=== PATIENT | male | born 1995 | race Caucasian/White ===

== ENCOUNTER 2018-09-14 10:30 | Emergency (ER) | payer MEDICAID, OTHER ==
[~2018-09-14] VITALS: Ht 177.8 cm; Wt 63.5 kg
[2018-09-14 10:35] VITALS: Ht 177.8 cm; Wt 63.5 kg
--- NOTE | 2018-09-14 11:21 | PSY ---
Date/Time of Note Date/Time of Note DATE: 09/14/18 TIME: 14:18 Psychiatric Subjective Eval Consent Pt consented to telemedicine: Yes Subjective Evaluation Patient location: emergency Chief Complaint: SUICIDAL IDEATION WITH PLAN, DX BIPOLAR, DEPRESSION History of present illness 22 yo male who says "I am very very suicidal right now." Clearly tells he wants to kill himself. Says he has dx of anxiety and bipolar disorder. Denies psychosis or nickolas. Reports thc use. Reports depressive sxs. Past Psych Hx: + ho admits no ho suicide attempts PMHx: denies nkda MSE: casually groomed, cooperative, depressed, organized, no delusions or avh +SI Imp: 22 yo male with si vol psych admit utox for moderate agitation zyprexa 5mg po prn for severe agitation chlorpromazine 25mg im prn Assessment and Plan Recommendation/Plan Multiple antipsychotics: No Discharge Disposition: Psychiatric inpatient Legal Status: Voluntary MAXIMO MURRELL Sep 14, 2018 11:21
[2018-09-14] MEDS ORDERED: GABA100C14 PO (12:44)
[2018-09-14] MEDS ORDERED: VENL37.56 PO (12:45)
--- NOTE | 2018-09-14 13:01 | ERD ---
ER Documentation Chief Complaint Chief Complaint SUICIDAL IDEATION WITH PLAN, DX BIPOLAR, DEPRESSION HPI Patient is a 22-year-old male with bipolar disorder who presents with suicidal ideation. He said that it started on September 06 because he has financial problems. He was kicked out of his apartment. He has no family here in the area. He had a plan to stab himself in the neck. He does not currently have a primary doctor. Upon review of old medical records this is the patient's first visit to the emergency department. ROS All systems reviewed and are negative except as per history of present illness. Medications Home Meds Reported Medications Venlafaxine Hcl* (Effexor*) Unknown Strength Tablet, 1 TAB PO DAILY, TAB 09/14/18 Gabapentin* (Gabapentin*) Unknown Strength Capsule, 1 TAB PO DAILY, #90 CAP 09/14/18 Allergies Allergies: Coded Allergies: No Known Allergy (Unverified , 09/14/18) PMhx/Soc Hx Psychiatric Problems: Yes (BIPOLAR) Hx Alcohol Use: No Hx Substance Use: Yes (MARIJUANA) Hx Tobacco Use: No Smoking Status: Never smoker FmHx Family History: No diabetes Physical Exam Vitals Vital Signs Date Temp Pulse Resp B/P (MAP) Pulse Ox O2 O2 Flow FiO2 Time Delivery Rate 09/14/18 98.1 67 18 144/74 99 10:35 (97) Physical Exam Const: No acute distress Head: Atraumatic Eyes: Normal Conjunctiva ENT: Normal External Ears, Nose and Mouth. Neck: Full range of motion. No meningismus. Resp: Clear to auscultation bilaterally Cardio: Regular rate and rhythm, no murmurs Abd: Soft, non tender, non distended. Normal bowel sounds Skin: No petechiae or rashes Back: No midline or flank tenderness Ext: No cyanosis, or edema Neur: Awake and alert Psych: Depressed affect with positive suicidal ideation with plan Result Diagram: 09/14/18 1219 09/14/18 1219 Results 24 hrs Laboratory Tests Test 09/14/18 12:19 White Blood Count 10.9 10^3/ul Red Blood Count 4.63 10^6/ul Hemoglobin 13.9 g/dl Hematocrit 40.4 % Mean Corpuscular Volume 87.3 fl Mean Corpuscular Hemoglobin 30.0 pg Mean Corpuscular Hemoglobin Concent 34.4 g/dl Red Cell Distribution Width 13.0 % Platelet Count 260 10^3/UL Mean Platelet Volume 9.5 fl Immature Granulocytes % 0.400 % Neutrophils % 81.3 % Lymphocytes % 13.1 % Monocytes % 4.2 % Eosinophils % 0.6 % Basophils % 0.4 % Nucleated Red Blood Cells % 0.0 /100WBC Immature Granulocytes # 0.040 10^3/ul Neutrophils # 8.8 10^3/ul Lymphocytes # 1.4 10^3/ul Monocytes # 0.5 10^3/ul Eosinophils # 0.1 10^3/ul Basophils # 0.0 10^3/ul Nucleated Red Blood Cells # 0.0 10^3/ul Sodium Level 142 mmol/L Potassium Level 4.8 mmol/L Chloride Level 104 mmol/L Carbon Dioxide Level 30 mmol/L Anion Gap 8 Blood Urea Nitrogen 14 mg/dl Creatinine 0.71 mg/dl Est Glomerular Filtrat Rate mL/min > 60 mL/min Glucose Level 140 mg/dl Calcium Level 9.4 mg/dl Total Bilirubin 0.6 mg/dl Direct Bilirubin 0.00 mg/dl Indirect Bilirubin 0.6 mg/dl Aspartate Amino Transf (AST/SGOT) 26 IU/L Alanine Aminotransferase (ALT/SGPT) 28 IU/L Alkaline Phosphatase 51 IU/L Total Protein 7.9 g/dl Albumin 4.5 g/dl Globulin 3.40 g/dl Albumin/Globulin Ratio 1.32 Salicylates Level < 1.0 mg/dl Acetaminophen Level < 10.0 ug/ml Ethyl Alcohol Level < 10.0 mg/dl Procedures/MDM Patient is a 22-year-old male with bipolar disorder who presents with suicidal ideation. The patient was medically cleared with laboratory studies and urine sample. The patient was seen by psychiatry who recommended voluntary psychiatric admission. The patient is agreeable. Departure Diagnosis: Primary Impression: Suicidal ideation Condition: RODO Vazquez MD Sep 14, 2018 13:01
--- NOTE | 2018-09-15 02:15 | EN ---
Date/Time of Note Date/Time of Note DATE: 09/15/18 TIME: 02:15 ER Progress Note Observation Note: Time: 4 hours Family Hx: No Hypertension Evaluation: Multiple exams showed improving symptoms and no evidence of increasing psychiatric instability SILVIO NICOLAS Sep 15, 2018 02:15
--- NOTE | 2018-09-15 09:47 | PSY ---
Date/Time of Note Date/Time of Note DATE: 09/15/18 TIME: 09:43 Psychiatric Subjective Eval Consent Pt consented to telemedicine: Yes Subjective Evaluation Patient location: emergency Chief Complaint: SUICIDAL IDEATION WITH PLAN, DX BIPOLAR, DEPRESSION Reason for consult: SI History of present illness 22 yo homeless male with hx bipolar d/o who was evaluated by telepsychiatry yesterday. Pt continues to cortney suicidal statements with plans to stab himself in the neck or walk into traffic. He says he is very depressed and hopeless because his father told him to go ahead and kill himself. Pt denies AH or Vh, denies HI. pT SAYS HE IS ON EFFEXOR XR 150 MG POQD GABAPENTIN 600 MG PO TID , OFF FOR A WEEK. Past psychiatric history multiple inpt Hospitalization: no Medical history Problems Medical Problems: (1) Suicidal ideation Status: Acute Allergies: Coded Allergies: No Known Allergy (Unverified , 09/14/18) Substance Abuse Substance use: No known substance abuse Social History Marital status: single DPA/Conservatorship: No Occupation/Detention: unemployed Psychiatric Objective Eval Review of Systems: Review of Systems: Not Applicable Mental Status Examination: Appearance: Disheveled Eye Contact: Good Psychomotor Activity: Normal Behavior: Cooperative Speech: Clear AFFECT: Depressed, Anxious Mood: Appropriate/Full, Anxious Though Process: Linear Thought Content: Normal Suicidal: Yes Homicidal: No On 72 hour hold: Yes Orientation: x4 Cognition: Alert Insight: Impared Judgement: Impared Laboratory Results Laboratory Tests Test 09/14/18 12:19 09/14/18 13:04 White Blood Count 10.9 10^3/ul Red Blood Count 4.63 10^6/ul Hemoglobin 13.9 g/dl Hematocrit 40.4 % Mean Corpuscular Volume 87.3 fl Mean Corpuscular Hemoglobin 30.0 pg Mean Corpuscular Hemoglobin Concent 34.4 g/dl Red Cell Distribution Width 13.0 % Platelet Count 260 10^3/UL Mean Platelet Volume 9.5 fl Immature Granulocytes % 0.400 % Neutrophils % 81.3 % Lymphocytes % 13.1 % Monocytes % 4.2 % Eosinophils % 0.6 % Basophils % 0.4 % Nucleated Red Blood Cells % 0.0 /100WBC Immature Granulocytes # 0.040 10^3/ul Neutrophils # 8.8 10^3/ul Lymphocytes # 1.4 10^3/ul Monocytes # 0.5 10^3/ul Eosinophils # 0.1 10^3/ul Basophils # 0.0 10^3/ul Nucleated Red Blood Cells # 0.0 10^3/ul Sodium Level 142 mmol/L Potassium Level 4.8 mmol/L Chloride Level 104 mmol/L Carbon Dioxide Level 30 mmol/L Anion Gap 8 Blood Urea Nitrogen 14 mg/dl Creatinine 0.71 mg/dl Est Glomerular Filtrat Rate mL/min > 60 mL/min Glucose Level 140 mg/dl Calcium Level 9.4 mg/dl Total Bilirubin 0.6 mg/dl Direct Bilirubin 0.00 mg/dl Indirect Bilirubin 0.6 mg/dl Aspartate Amino Transf (AST/SGOT) 26 IU/L Alanine Aminotransferase (ALT/SGPT) 28 IU/L Alkaline Phosphatase 51 IU/L Total Protein 7.9 g/dl Albumin 4.5 g/dl Globulin 3.40 g/dl Albumin/Globulin Ratio 1.32 Salicylates Level < 1.0 mg/dl Acetaminophen Level < 10.0 ug/ml Ethyl Alcohol Level < 10.0 mg/dl Urine Color YELLOW Urine Clarity HAZY Urine pH 7 Urine Specific [place] 1.005 Urine Ketones NEGATIVE mg/dL Urine Nitrite NEGATIVE mg/dL Urine Bilirubin NEGATIVE mg/dL Urine Urobilinogen NEGATIVE mg/dL Urine Leukocyte Esterase NEGATIVE [place]/ul Urine Microscopic WBC 0-2 /HPF Urine Hemoglobin NEGATIVE mg/dL Urine Glucose NEGATIVE mg/dL Urine Total Protein TRACE mg/dl Urine Opiates Screen Negative Urine Barbiturates Negative Urine Amphetamines Screen Negative Urine Benzodiazepines Screen Negative Urine Cocaine Screen Negative Urine Cannabinoids Positive Assessment and Plan Assessment/Diagnosis Diagnosis BIPOLAR DISORDER DEPRESSED Recommendation/Plan Medication Management EFFEXOR XR 150 MG POQD; GABAPENINT 600 MG PO TID Multiple antipsychotics: Yes Discharge Disposition: Psychiatric inpatient Legal Status: Continue involuntary hold LIZZ BARAJAS MD Sep 15, 2018 09:47
[2018-09-15] MEDS ORDERED: VENLAFAXINE (XR) 37.5 MG CAP PO SCH (10:30)
[2018-09-15] MEDS ORDERED: GABAPENTIN 300 MG CAP PO SCH (13:00)
[2018-09-15 16:30] VITALS: BP 118/76; PULSE 82; RESP 18
== END 2018-09-15 16:41 ==
LOC: E/R 10:30
DX: R45.851 Suicidal ideations (principal)
CPT/HCPCS: 36415; 80053; 80307; 81001; 85025; Z7502; Z7610